=== PATIENT | male | born 1960 | race Two or more races ===

== ENCOUNTER 2018-03-31 14:17 | Emergency (ER) | payer BC ==
[2018-03-31 14:23] VITALS: BP 154/88
--- NOTE | 2018-03-31 14:41 | ER Document Report ---
HPI - HPI Time Seen by Provider: 03/31/18 14:37 Pain Level: 3 Notes: Patient is a 58-year-old male who presents to the ED complaining of Rt upper dental pain #4 several days, with swelling that started x1 day. He has not noticed any obvious abscess or purulent discharge. Patient states that he is still able to eat and drink, but does have a decreased p.o. intake due to the pain. He has tried some [id number] meds with minimal relief. No other concerns or complaints. Denies any headache, fever, head injury, neck pain, hoarseness, drooling, URI, sore throat, chest pain, palpitations, syncope, cough, shortness of breath, wheeze, dyspnea, abdominal pain, nausea/vomiting/diarrhea, urinary retention, dysuria, hematuria, or rash. - ROS Systems Reviewed and Negative: Yes All other systems reviewed and negative Past Medical History - Social History Smoking Status: Unknown if Ever Smoked Family History: Reviewed & Not Pertinent Patient has suicidal ideation: No Patient has homicidal ideation: No Renal/ Medical History: Denies: Hx Peritoneal Dialysis Vertical Provider Document - CONSTITUTIONAL Agree With Documented VS: Yes Notes: PHYSICAL EXAMINATION: GENERAL: Well-appearing, well-nourished and in no acute distress. HEAD: Atraumatic, normocephalic. EYES: Pupils equal round and reactive to light, extraocular movements intact, sclera anicteric, conjunctiva are normal. ENT: EAC clear b/l. TM's intact b/l without erythema, fluid, or perforation. Nares patent and without discharge. oropharynx clear without exudates. No tonsilar hypertrophy or erythema. Moist mucous membranes. No sinus tenderness. Uvula midline. No palatine shift. No tongue protrusion. No respiratory compromise. Mouth: Poor dentition. + moderate decay and mild gingivitis. No obvious abscess or discharge noted. + mild peridental facial swelling. + tenderness to tooth #4. NECK: Normal range of motion, supple without lymphadenopathy. No rigidity/meningismus. LUNGS: Breath sounds clear to auscultation bilaterally and equal. No wheezes rales or rhonchi. HEART: Regular rate and rhythm without murmurs, rubs, gallops. NEUROLOGICAL: Cranial nerves grossly intact. Normal speech, normal gait. PSYCH: Normal mood, normal affect. SKIN: Warm, Dry, normal turgor, no rashes or lesions noted. - INFECTION CONTROL TRAVEL OUTSIDE OF THE [place] IN LAST 30 DAYS: No Course - Re-evaluation Re-evalutation: 03/31/18 14:51 Patient is an afebrile, well-hydrated, 58-year-old male who presents to the ED with dental pain, suspect nerve root etiology versus infection. Vitals are acceptable. PE is otherwise unremarkable. No I&D, labs, or imaging warranted at this time based on H&P. I will send him home with a prescription for cleocin. Low suspicion for any meningitis, sepsis, peritonsillar/pharyngeal abscess, respiratory compromise, Oni's, temporal arteritis, or other emergent systemic condition at this time. Patient is aware this condition can change from initial presentation and he needs to monitor symptoms closely. Conservative measures otherwise for symptoms. Call to schedule an appointment with a dentist for further evaluation and management. Recheck with your PCM this week as well. Return to the ED with any worsening/concerning symptoms otherwise as reviewed in discharge. Patient is in agreement. - Vital Signs Vital signs: Temp Pulse Resp BP Pulse Ox 99.1 F 87 18 154/88 H 100 03/31/18 14:22 03/31/18 14:22 03/31/18 14:22 03/31/18 14:22 03/31/18 14:22 Discharge - Discharge Clinical Impression: Pain, dental Condition: Stable Disposition: HOME, SELF-CARE Instructions: Clindamycin ([facility]), Toothache ([facility]) Additional Instructions: [place] and floss twice daily Maintain fluid intake Take antibiotics as directed Mouthwash, salt water gargles, peroxide rinse as needed Tylenol/ibuprofen as needed Recheck with PCM this week Call today/tomorrow and schedule an appointment with your dentist for further evaluation Return to the ED with any worsening symptoms and/or development of fever, headache, facial swelling, swelling of lips/tongue/throat, trouble swallowing, drooling, hoarseness, neck pain/stiffness, chest pain, palpitations, syncope, shortness of breath, trouble breathing, abdominal pain, n/v/d, numbness/tingling, or other worsening symptoms that are concerning to you. Prescriptions: Clindamycin HCl [Cleocin 300 mg Capsule] 300 mg PO TID #30 capsule Forms: Elevated Blood Pressure Referrals: [facility] [Provider Group] - Follow up as needed
== END 2018-03-31 14:43 | disposition home or self-care (01) ==
LOC: ER 14:17
DX: K08.9 Disorder of teeth and supporting structures, unspecified (principal)
CPT/HCPCS: 99282